=== PATIENT | male | born 1995 | race Caucasian/White ===

== ENCOUNTER 2017-08-25 10:51 | Day surgery (SDC) | payer OTHER ==
[2017-08-25] MEDS: BUPIVACAINE 0.25% (MPF) 30 ML INJ INJ
[~2017-08-25 10:51] MED LIST: CEFAZOLIN 1 GM INJ; GLYCOPYRROLATE 0.4 MG INJ
[2017-08-25] MEDS ORDERED: SOD CHLORIDE 0.9% 1,000 ML IV (11:00)
[2017-08-25] MEDS ORDERED: BUPIVACAINE 0.25% (MPF) 30 ML INJ (12:50)
[2017-08-25] MEDS ORDERED: MIDAZOLAM 1 MG/ML 2 ML INJ (13:02)
[2017-08-25] MEDS ORDERED: ONDANSETRON 4 MG INJ (13:02)
[2017-08-25] MEDS ORDERED: METOCLOPRAMIDE 10 MG INJ (13:02)
[2017-08-25] MEDS ORDERED: ROPIVACAINE 0.5 % 30 ML VIAL (13:02)
[2017-08-25] MEDS: CEFAZOLIN 1 GM/50 ML (PMX) 50 ML IVPB (13:20)
[2017-08-25] MEDS ORDERED: KETOROLAC 30 MG INJ (13:29)
[2017-08-25] MEDS ORDERED: NEOSTIGMINE 3 MG/3 ML SYRINGE (13:29)
[2017-08-25] MEDS ORDERED: PROPOFOL 20 ML (13:29)
[2017-08-25] MEDS ORDERED: OXYCODONE/ACETAMINOPHEN (5/325) TAB PO (13:30)
[2017-08-25] MEDS ORDERED: HYDROmorphONE (0.2 MG/ML) 10ML SYG IV (13:30)
[2017-08-25] MEDS ORDERED: HYDROCODONE/APAP (5/325) TAB PO (14:00)
[2017-08-25] MEDS: HYDROmorphONE (0.2 MG/ML) 10ML SYG IV ×4 (14:11→14:35)
[2017-08-25] MEDS: ONDANSETRON 4 MG INJ IV (14:11)
[2017-08-25] MEDS: MEPERIDINE 25 MG INJ IV (14:11)
[2017-08-25] MEDS: DIPHENHYDRAMINE 50 MG INJ IV (14:15)
[2017-08-25] MEDS: OXYCODONE/ACETAMINOPHEN (5/325) TAB PO (15:33)
== END 2017-08-25 15:45 | disposition home or self-care (01) ==
LOC: SDS 10:51
DX: K80.10 Calculus of gallbladder with chronic cholecystitis without obstruction (principal); J44.9 Chronic obstructive pulmonary disease, unspecified; J45.909 Unspecified asthma, uncomplicated
CPT/HCPCS: 47562; 88304

== ENCOUNTER 2017-08-25 17:15 | Emergency (ER) | payer OTHER ==
[2017-08-25] MEDS: OXYCODONE/ACETAMINOPHEN (10/325) TAB PO (18:59)
== END 2017-08-25 19:27 | disposition home or self-care (01) ==
LOC: E/R 17:15
DX: G89.18 Other acute postprocedural pain (principal); R10.9 Unspecified abdominal pain; K91.840 Postprocedural hemorrhage of a digestive system organ or structure following a digestive system procedure; J44.9 Chronic obstructive pulmonary disease, unspecified; F17.210 Nicotine dependence, cigarettes, uncomplicated
CPT/HCPCS: 99283; Z7502